=== PATIENT | male | born 1935 | race Caucasian/White ===

== ENCOUNTER 2021-04-09 04:56 | Emergency (ER) | payer MEDICARE ==
[2021-04-09 05:23] LABS: #Basophils 0.1 thou/uL (0.0-0.2); #Lymphocytes 0.6 thou/uL (1.20-3.40); #Monocytes 1.2 thou/uL (0.11-0.59); #Neutrophils 16.7 thou/uL (1.40-6.50); %Basophils 0.4 % (0.0-1.0); %Eosinophils 0.2 % (0.0-10.0); %Lymphocytes 3.1 % (21.0-51.0); %Monocytes 6.6 % (0.0-10.0); %Neutrophils 89.7 % (42.0-75.0); Hemoglobin 13.1 g/dL (14.0-18.0); Mean Corpuscular HGB CONC 30.9 g/dL (32.0-36.0); Mean Corpuscular Hemoglobin 28.8 pg (27.0-31.0); Mean Corpuscular Volume 93.1 fL (78.0-98.0); Mean Platelet Volume 5.4 fL (7.4-10.4); Platelet Count 248 thou/uL (130-400); RBC Distribution Width 14.7 % (11.5-14.5); Red Blood Cell (RBC) Count 4.55 mill/uL (4.70-6.10); White Blood Cell (WBC) Count 18.6 thou/uL (4.8-10.8)
[2021-04-09] MEDS ORDERED: Sodium Chloride 0.9% 250 ML 250 ML ONE (05:39)
[2021-04-09] MEDS ORDERED: Cefepime 2 GM VIAL ONE (05:39)
[2021-04-09 05:51] LABS: ALT (SGPT) 45 U/L (8-55); AST (SGOT) 56 U/L (5-34); Albumin 3.2 g/dL (3.4-4.8); Alkaline Phosphatase 159 U/L (40-110); Anion Gap 15 mmol/L (10-20); BUN (Urea Nitrogen) 17 mg/dL (8.4-25.7); Bilirubin, Total 1.4 mg/dL (0.2-1.2); Calc. Creatinine Clearance 0 mL/min (70-130); Calcium 8.3 mg/dL (7.8-10.44); Carbon Dioxide 25 mmol/L (23-31); Chloride 101 mmol/L (98-107); Globulin 2.4 g/dL (2.4-3.5); Glucose 172 mg/dL (83-110); Potassium 3.2 mmol/L (3.5-5.1); Protein, Total 5.6 g/dL (5.8-8.1); Sodium 138 mmol/L (136-145)
[2021-04-09] MEDS ORDERED: Potassium Chloride 20 MEQ TAB ONE (06:02)
[2021-04-09] MEDS ORDERED: Sodium Chloride 0.9% 100 ML ONE (06:05)
[2021-04-09] MEDS ORDERED: Aspirin 325 MG TAB ONE (06:05)
[2021-04-09 06:30] LABS: SARS-CoV-2 NAA Rapid Test Not Detected (NotDetected)
[2021-04-09] MEDS ORDERED: Amlodipine 5 MG TAB ONE (07:07)
== END 2021-04-09 09:25 | disposition short-term general hospital (02) ==
LOC: MADERS 04:56
DX: J18.9 Pneumonia, unspecified organism (principal); R77.8 Other specified abnormalities of plasma proteins; E87.6 Hypokalemia; I10 Essential (primary) hypertension; Z87.891 Personal history of nicotine dependence
CPT/HCPCS: 71045; 80053; 82553; 83605; 83880; 84484; 85025; 87040; 87077; 87149; 93005; 96365; 96366; 96367; J0692; J3370; J3490; J7050; U0002

== ENCOUNTER 2023-01-06 10:31 | Emergency (ER) | payer MEDICARE ==
[2023-01-06] MEDS ORDERED: Sodium Chloride 0.9% 0 ML ONE (11:13)
[2023-01-06] MEDS ORDERED: Sodium Chloride 0.9% 100 ML ONE (11:18)
[2023-01-06] MEDS ORDERED: Cefepime 2 GM VIAL ONE (11:18)
[2023-01-06] MEDS ORDERED: Sodium Chloride 0.9% 250 ML 500 ML ONE (11:21)
[2023-01-06] MEDS ORDERED: Sodium Chloride 0.9% 500 ML ONE (11:21)
[2023-01-06 11:31] LABS: ALT (SGPT) 29 U/L (8-55); AST (SGOT) 24 U/L (5-34); Albumin 3.5 g/dL (3.4-4.8); Alkaline Phosphatase 101 U/L (40-110); Anion Gap 17 mmol/L (10-20); BUN (Urea Nitrogen) 20 mg/dL (8.4-25.7); Calc. Creatinine Clearance 0 mL/min (70-130); Calcium 9.1 mg/dL (7.8-10.44); Carbon Dioxide 26 mmol/L (23-31); Chloride 101 mmol/L (98-107); Estimated GFR 61; Globulin 2.8 g/dL (2.4-3.5); Glucose 210 mg/dL (83-110); Magnesium 2.1 mg/dL (1.6-2.6); Potassium 4.6 mmol/L (3.5-5.1); Protein, Total 6.3 g/dL (5.8-8.1); Sodium 139 mmol/L (136-145)
[2023-01-06 11:38] LABS: Anisocytosis SLIGHT = 6-15 cells (100X) (0-5/hpf); Band 4 % (5-11); Hemoglobin 13.1 g/dL (14.0-18.0); Lymphocytes 3 % (21-51); MDiff Complete? YES; Macrocytosis SLIGHT = 6-15 cells (100X) (0-5/hpf); Mean Corpuscular HGB CONC 32.6 g/dL (32.0-36.0); Mean Corpuscular Hemoglobin 32.6 pg (27.0-31.0); Mean Corpuscular Volume 100.2 fl (78.0-98.0); Mean Platelet Volume 6.8 fL (7.4-10.4); Monocytes 6 % (0-10); Neutrophil 80 % (42-75); Platelet Adequacy Comment Appears Adequate; Platelet Count 131 10x3/uL (130-400); Polychromasia SLIGHT = 2-3 cells (100X) (0-2/hpf); Reactive Lymphocytes 7 % (0-10); White Blood Cell (WBC) Count 19.7 10x3/uL (4.8-10.8)
[2023-01-06 11:43] LABS: Lipase Less than 4 U/L (8-78)
[2023-01-06] MEDS ORDERED: Aspirin 325 MG TAB ONE (11:45)
[2023-01-06] MEDS ORDERED: Vancomycin 1 GM VIAL ONE (11:58)
== END 2023-01-06 13:48 | disposition short-term general hospital (02) ==
LOC: MADERS 10:31
DX: A41.9 Sepsis, unspecified organism (principal); R77.8 Other specified abnormalities of plasma proteins; J18.9 Pneumonia, unspecified organism; E78.5 Hyperlipidemia, unspecified; J44.9 Chronic obstructive pulmonary disease, unspecified; I11.0 Hypertensive heart disease with heart failure; I50.9 Heart failure, unspecified; F17.220 Nicotine dependence, chewing tobacco, uncomplicated; Z79.899 Other long term (current) drug therapy; Z79.82 Long term (current) use of aspirin
CPT/HCPCS: 36415; 71045; 80053; 83605; 83690; 83735; 83880; 84484; 85025; 87040; 93005; 94760; 96365; 96366; 96367; J0692; J3370; J3490; J7030; J7050

== ENCOUNTER 2023-02-09 01:59 | Emergency (ER) | payer MEDICARE ==
[2023-02-09] MEDS ORDERED: Cefepime 2 GM VIAL ONE (02:31)
[2023-02-09] MEDS ORDERED: Sodium Chloride 0.9% 100 ML ONE (02:31)
[2023-02-09] MEDS ORDERED: Lactated Ringer's 1,000 ML ONE (02:31)
[2023-02-09] MEDS ORDERED: Sodium Chloride 0.9% 250 ML 250 ML ONE (02:32)
[2023-02-09] MEDS ORDERED: Vancomycin 1 GM VIAL ONE (02:32)
[2023-02-09] MEDS ORDERED: Doxycycline 100 MG CAP ONE (02:41)
[2023-02-09 02:42] LABS: #Basophils 0.1 thou/uL (0.0-0.2); #Eosinphils 0.1 thou/uL (0.0-0.7); #Lymphocytes 1.3 thou/uL (1.20-3.40); #Neutrophils 9.6 thou/uL (1.40-6.50); %Basophils 0.6 % (0.0-1.0); %Eosinophils 0.6 % (0.0-10.0); %Lymphocytes 11.1 % (21.0-51.0); %Monocytes 7.9 % (0.0-10.0); %Neutrophils 79.9 % (42.0-75.0); Hematocrit 37.9 % (42.0-52.0); Hemoglobin 12.2 g/dL (14.0-18.0); MDiff Complete? YES; Macrocytosis SLIGHT = 6-15 cells (100X) (0-5/hpf); Mean Corpuscular HGB CONC 32.3 g/dL (32.0-36.0); Mean Corpuscular Hemoglobin 33.3 pg (27.0-31.0); Mean Corpuscular Volume 103.1 fl (78.0-98.0); Platelet Adequacy Comment Appears Decreased; Platelet Count 82 10x3/uL (130-400); RBC Distribution Width 15.9 % (11.5-14.5); Red Blood Cell (RBC) Count 3.67 mill/uL (4.70-6.10)
[2023-02-09] MEDS ORDERED: Ipratropium/Albuterol 3 ML NEB ONE (02:42)
[2023-02-09 02:47] LABS: ALT (SGPT) 17 U/L (8-55); AST (SGOT) 20 U/L (5-34); Albumin 3.5 g/dL (3.4-4.8); Alkaline Phosphatase 121 U/L (40-110); Anion Gap 15 mmol/L (10-20); BUN (Urea Nitrogen) 20 mg/dL (8.4-25.7); Bilirubin, Total 0.7 mg/dL (0.2-1.2); Calc. Creatinine Clearance 0 mL/min (70-130); Calcium 8.5 mg/dL (7.8-10.44); Carbon Dioxide 25 mmol/L (23-31); Chloride 102 mmol/L (98-107); Estimated GFR 48; Globulin 2.7 g/dL (2.4-3.5); Glucose 237 mg/dL (83-110); Potassium 4.3 mmol/L (3.5-5.1); Protein, Total 6.2 g/dL (5.8-8.1); Sodium 138 mmol/L (136-145)
[2023-02-09 02:50] LABS: Troponin I 0.024 ng/mL (< 0.028)
[2023-02-09 02:59] LABS: SARS-CoV-2 NAA Rapid Test Not Detected (NotDetected)
[2023-02-09 04:07] LABS: Bilirubin Negative (Negative); Blood, Urine Trace (Negative); Clarity Clear (Clear); Glucose, Urine (Dipstick) 250 mg/dL (Negative); Ketone, Urine Negative (Negative); Leukocyte Negative (Negative); Nitrite Negative (Negative); Protein, Urine (Dipstick) 30 mg/dL (Neg-Trace); Urobilinogen 0.2 mg/dL (Less than 2); pH, Urine 5.5 (5.0-9.0)
[2023-02-09 04:17] LABS: CAUTI Indications for Culture Dysuria,urgency,freq; Calcium Oxalate Crystals 2+ HPF (None Seen); Squamous Epithelial 0-3 HPF (0-3); WBC/HPF None Seen HPF (0-3)
[2023-02-09 04:18] LABS: Urine Culture Reflex No No
[2023-02-10 11:20] LABS: INR-International Normal Ratio 1.2; PTT 33.9 sec (22.9-36.1); Prothrombin Time 15.9 sec (12.0-14.7)
== END 2023-02-09 04:24 | disposition short-term general hospital (02) ==
LOC: MADERS 01:59
DX: A41.9 Sepsis, unspecified organism (principal); N17.9 Acute kidney failure, unspecified; I48.20 Chronic atrial fibrillation, unspecified; J44.1 Chronic obstructive pulmonary disease with (acute) exacerbation; J18.9 Pneumonia, unspecified organism; D69.6 Thrombocytopenia, unspecified; I11.0 Hypertensive heart disease with heart failure; I50.9 Heart failure, unspecified; E78.5 Hyperlipidemia, unspecified; J44.9 Chronic obstructive pulmonary disease, unspecified; Z87.891 Personal history of nicotine dependence; Z79.899 Other long term (current) drug therapy; Z79.82 Long term (current) use of aspirin; Z20.822 Contact with and (suspected) exposure to COVID-19
CPT/HCPCS: 71045; 81001; 83605; 83735; 84484; 85610; 85730; 87040; 87086; 87804 ×2; 93005; U0002; 36415; 80053; 84443; 85025; 96365; 96367; J0692; J3370; J3490; J7050; J7120; J7620

== ENCOUNTER 2023-08-23 13:06 | Emergency (ER) | payer MEDICARE, OTHER ==
[~2023-08-23 13:06] MED LIST: Iopamidol 370 76% 100 ML VIAL ONE; Sodium Chloride 0.9% 100 ML BAG ONE
[2023-08-23] MEDS ORDERED: cefTRIAXone (ROCEPHIN) 1 GM VIAL ONE (13:49)
[2023-08-23] MEDS ORDERED: Sodium Chloride 0.9% 100 ML ONE (13:49)
[2023-08-23] MEDS ORDERED: Benzonatate 100 MG CAP ONE (13:49)
[2023-08-23 14:16] LABS: Bilirubin Negative (Negative); Blood, Urine Small (Negative); Glucose, Urine (Dipstick) Negative (Negative); Ketone, Urine Negative (Negative); Leukocyte Trace (Negative); Nitrite Negative (Negative); Protein, Urine (Dipstick) Negative (Neg-Trace); Specific Gravity, Urine 1.015 (1.005-1.030); Urobilinogen 0.2 mg/dL (Less than 2); pH, Urine 5.5 (5.0-9.0)
[2023-08-23 14:17] LABS: ALT (SGPT) 82 U/L (8-55); AST (SGOT) 66 U/L (5-34); Albumin 3.9 g/dL (3.4-4.8); Alkaline Phosphatase 97 U/L (40-110); Anion Gap 22 mmol/L (10-20); BUN (Urea Nitrogen) 17 mg/dL (8.4-25.7); Bilirubin, Total 1.2 mg/dL (0.2-1.2); Calc. Creatinine Clearance 0 mL/min (70-130); Calcium 9.5 mg/dL (7.8-10.44); Carbon Dioxide 24 mmol/L (23-31); Chloride 102 mmol/L (98-107); Estimated GFR 50; Globulin 3.2 g/dL (2.4-3.5); Glucose 166 mg/dL (83-110); Magnesium 2.1 mg/dL (1.6-2.6); Potassium 3.6 mmol/L (3.5-5.1); Protein, Total 7.1 g/dL (5.8-8.1); Sodium 144 mmol/L (136-145)
[2023-08-23 14:18] LABS: Hemoglobin 14.7 g/dL (14.0-18.0); Mean Corpuscular HGB CONC 29.5 g/dL (32.0-36.0); Mean Corpuscular Hemoglobin 29.7 pg (27.0-31.0); Mean Corpuscular Volume 100.7 fl (78.0-98.0); Mean Platelet Volume 6.2 fL (7.4-10.4); Platelet Count 137 10x3/uL (130-400); RBC Distribution Width 13.3 % (11.5-14.5); Red Blood Cell (RBC) Count 4.96 mill/uL (4.70-6.10); Troponin I 0.045 ng/mL (< 0.028); White Blood Cell (WBC) Count 11.7 10x3/uL (4.8-10.8)
[2023-08-23 14:19] LABS: Band 10 % (5-11); Lymphocytes 8 % (21-51); MDiff Complete? YES; Monocytes 3 % (0-10); Neutrophil 78 % (42-75); Platelet Adequacy Comment Appears Adequate
[2023-08-23 14:19] LABS: CAUTI Indications for Culture Pelvic or flank pain; Clarity Hazy (Clear)
[2023-08-23 14:20] LABS: Base Excess-Venous 3.8 mmol/L (-2.0 to 3.0); Bicarbonate (HCO3v) 29.6 mmol/L (22.0-28.0); CO2 Tension (PvCO2) 46.5 mmHg (42.0-51.0); Calcium, Ionized 1.09 mmol/L (1.15-1.33); Chloride 107 mmol/L (98-107); Hemoglobin - Calc 18.4 g/dL (14.0-18.0); Potassium 3.4 mmol/L (3.5-5.1); Sodium 146 mmol/L (138-145); vO2 Saturation-calc 91.9 % (60.0-85.0)
[2023-08-23 14:22] LABS: Bacteria/HPF 1+ HPF (None Seen); Squamous Epithelial 0-3 HPF (0-3); WBC/HPF 0-3 HPF (0-3)
[2023-08-23 14:23] LABS: Urine Culture Reflex No No
[2023-08-23] MEDS ORDERED: Ipratropium/Albuterol 3 ML NEB ONE (14:38)
[2023-08-23] MEDS ORDERED: Aspirin 325 MG TAB ONE (14:39)
[2023-08-23] MEDS ORDERED: Azithromycin 250 MG TAB ONE (14:39)
[2023-08-23 14:51] LABS: Influenza A by NAA Not Detected (NotDetected); Influenza B by NAA Not Detected (NotDetected); SARS-CoV-2 NAA Rapid Test Not Detected (NotDetected)
== END 2023-08-23 16:25 | disposition short-term general hospital (02) ==
LOC: MADERS 13:06
DX: A41.9 Sepsis, unspecified organism (principal); J18.9 Pneumonia, unspecified organism; R79.89 Other specified abnormal findings of blood chemistry; I11.0 Hypertensive heart disease with heart failure; I50.9 Heart failure, unspecified; E78.5 Hyperlipidemia, unspecified; I48.91 Unspecified atrial fibrillation; Z79.82 Long term (current) use of aspirin; Z87.891 Personal history of nicotine dependence; Z79.899 Other long term (current) drug therapy
CPT/HCPCS: 0240U; 71045; 71275; 80053; 81001; 82330; 82435; 82803; 83605; 83735; 83880; 84132; 84295; 84484; 85014; 85025; 87040; 87070; 87205; 93005; 94760; 36415; 96365; J0696; J3490; J7620; Q9967

== ENCOUNTER 2023-12-03 18:46 | Emergency (ER) | payer MEDICARE ==
[2023-12-03 19:25] LABS: #Basophils 0.1 thou/uL (0.0-0.2); #Neutrophils 14.8 thou/uL (1.40-6.50); %Basophils 0.5 % (0.0-1.0); %Lymphocytes 5.8 % (21.0-51.0); %Monocytes 6.1 % (0.0-10.0); %Neutrophils 87.6 % (42.0-75.0); Hematocrit 49.3 % (42.0-52.0); Hemoglobin 14.5 g/dL (14.0-18.0); Mean Corpuscular HGB CONC 29.3 g/dL (32.0-36.0); Mean Corpuscular Hemoglobin 29.7 pg (27.0-31.0); Mean Corpuscular Volume 101.2 fl (78.0-98.0); Mean Platelet Volume 5.1 fL (7.4-10.4); Platelet Count 280 10x3/uL (130-400); RBC Distribution Width 14.3 % (11.5-14.5); Red Blood Cell (RBC) Count 4.88 mill/uL (4.70-6.10); White Blood Cell (WBC) Count 16.9 10x3/uL (4.8-10.8)
[2023-12-03 19:36] LABS: ALT (SGPT) 97 U/L (8-55); AST (SGOT) 113 U/L (5-34); Albumin 2.8 g/dL (3.4-4.8); Alkaline Phosphatase 156 U/L (40-110); Anion Gap 21 mmol/L (10-20); BUN (Urea Nitrogen) 19 mg/dL (8.4-25.7); Bilirubin, Total 1.2 mg/dL (0.2-1.2); Calc. Creatinine Clearance 0 mL/min (70-130); Calcium 9.4 mg/dL (7.8-10.44); Carbon Dioxide 27 mmol/L (23-31); Chloride 98 mmol/L (98-107); Estimated GFR 62; Glucose 256 mg/dL (83-110); Potassium 3.1 mmol/L (3.5-5.1); Protein, Total 6.8 g/dL (5.8-8.1); Sodium 143 mmol/L (136-145)
[2023-12-03 19:37] LABS: Troponin I 0.038 ng/mL (< 0.028)
[2023-12-03 19:56] LABS: Base Excess-Venous 8.4 mmol/L (-2.0 to 3.0); Bicarbonate (HCO3v) 34.3 mmol/L (22.0-28.0); CO2 Tension (PvCO2) 49.8 mmHg (42.0-51.0); Calcium, Ionized 1.07 mmol/L (1.15-1.33); Chloride 99 mmol/L (98-107); Hemoglobin - Calc 16.9 g/dL (14.0-18.0); Potassium 3.1 mmol/L (3.5-5.1); Sodium 141 mmol/L (138-145); T. Carbon Dioxide 35.9 mmol/L (22.0-28.0); vO2 Saturation-calc 99.7 % (60.0-85.0)
[2023-12-03] MEDS ORDERED: Furosemide 20 MG (2 mL) VIAL ONE (20:02)
[2023-12-03] MEDS ORDERED: Sodium Chloride 0.9% 100 ML ONE (20:03)
[2023-12-03] MEDS ORDERED: Piperacillin/Tazobactam 4.5 GM VIAL ONE (20:03)
== END 2023-12-03 20:18 | disposition short-term general hospital (02) ==
LOC: MADERS 18:46
DX: I48.20 Chronic atrial fibrillation, unspecified (principal); J96.21 Acute and chronic respiratory failure with hypoxia; C34.91 Malignant neoplasm of unspecified part of right bronchus or lung; I11.0 Hypertensive heart disease with heart failure; I50.9 Heart failure, unspecified; J44.9 Chronic obstructive pulmonary disease, unspecified; Z87.891 Personal history of nicotine dependence; E78.5 Hyperlipidemia, unspecified; Z79.899 Other long term (current) drug therapy; Z79.82 Long term (current) use of aspirin; Z79.51 Long term (current) use of inhaled steroids
CPT/HCPCS: 71045; 80053; 82330; 82803; 83880; 84484; 85025; 87040; 93005; 96374; 96375; J1940; J2543; J3490